=== PATIENT | male | born 1960 | race Caucasian/White ===

== ENCOUNTER 2017-07-04 18:49 | Inpatient (IN) | payer OTHER ==
[~2017-07-04] VITALS: Ht 188 cm; Wt 81.1 kg
[2017-07-04] VITALS (7 sets, daily range): BP systolic 182–229; BP diastolic 87–111; PULSE 56–62; RESP 18–22; TEMP 96.7; O2SAT 95–100
[~2017-07-04 18:49] MED LIST: GLUC500C3 PO; HYDR-3129 PO; MILK140C PO; NORV10TA PO
[2017-07-04] MEDS ORDERED: AMLO10 PO (19:04)
[2017-07-04] MEDS ORDERED: OXYC-395 PO (19:06)
[2017-07-04] MEDS ORDERED: SODIUM CHLOR 0.9% 1000 ML INJ 1,000 ML IV SCH (19:15)
[2017-07-04] MEDS ORDERED: DIPHTH/TETANUS/ACEL PERTUSSIS (BOOSTER) 0.5 ML VIAL/PFS IM ONE (19:15)
[2017-07-04] MEDS ORDERED: ceFAZolin 2 GM PREMIX 50 ML IV ONE (19:15)
[2017-07-04] MEDS ORDERED: SODIUM CHLORIDE 0.9% FLUSH 10 ML FLUSH IVF PRN (19:15)
[2017-07-04] MEDS ORDERED: ONDANSETRON HCL 4 MG/2 ML VIAL IV PUSH ONE (19:15)
[2017-07-04] MEDS ORDERED: MORPHINE SULFATE 4 MG/ML INJ IV PUSH ONE ×2 (19:15→19:45)
[2017-07-04] MEDS ORDERED: MORPHINE SULFATE 8 MG/ML INJ IV PUSH ONE (19:30)
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
[2017-07-04 19:41] LABS: BASOPHIL % 0.7 % (0.0-2.0); EOSINOPHIL % 0.8 % (0.0-4.0); HEMATOCRIT 36.6 % (39.0-51.0); LYMPH % 17.5 % (9.0-44.0); LYMPHOCYTE # 0.7 TH/MM3 (1.0-4.8); MEAN CELL VOLUME 73.3 FL (80.0-100.0); MEAN CORPUSCULAR HEMOGLOBIN 24.2 PG (27.0-34.0); MONO % 8.5 % (0.0-8.0); NEUT % 72.5 % (16.0-70.0); PLATELET COUNT 52 TH/MM3 (150-450); RED BLOOD COUNT 4.99 MIL/MM3 (4.50-5.90); RED CELL DISTRIBUTION WIDTH 22.6 % (11.6-17.2); WHITE BLOOD COUNT 4.2 TH/MM3 (4.0-11.0)
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
[2017-07-04 19:55] LABS: APTT (PATIENT) 25.9 SEC (24.3-30.1); PROTHROMBIN TIME - PATIENT 11.4 SEC (9.8-11.6)
[2017-07-04] MEDS ORDERED: IOHEXOL 350 MG/ML 10 ML VIAL (for RAD DIAG) IVCONTRAST ONE (19:56)
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
[2017-07-04 20:07] LABS: ALCOHOL LESS THAN 3 MG/DL (0-5)
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
[2017-07-04 20:18] LABS: HEMO FLAGS AUTO DIFF
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
[2017-07-04 20:22] LABS: PLATELET ESTIMATE SMEAR LOW (NORMAL); PLATELET MORPHOLOGY ENLARGED (NORMAL); SCAN/DIFF AUTO DIFF CONFIRMED
[2017-07-04 20:48] LABS: I-STAT POTASSIUM 3.5 MMOL/L (3.5-4.9); I-STAT SODIUM 143 MMOL/L (138-146)
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
[2017-07-04] MEDS ORDERED: FENT12DI T-DERMAL (21:12)
[2017-07-04] MEDS ORDERED: CHLORHEXIDINE GLUCONATE 2 % 1 PACK (2 CLOTHS) TOP PRN (21:30)
[2017-07-04] MEDS ORDERED: MISCELLANEOUS NURSING INFORMATION XX SCH (21:30)
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
[2017-07-04] MEDS ORDERED: FENT25DI T-DERMAL (21:48)
[2017-07-04] MEDS ORDERED: fentaNYL 25 MCG/HR PATCH T-DERMAL SCH (22:00)
[2017-07-04 22:30] LABS: ANION GAP 9 MEQ/L (5-15); BLOOD UREA NITROGEN 13 MG/DL (7-18); CHLORIDE 108 MEQ/L (98-107); GLOMERULAR FILTRATION RATE 78 ML/MIN (>89); POTASSIUM 4.5 MEQ/L (3.5-5.1); SODIUM (NA) 140 MEQ/L (136-145)
[2017-07-04] MEDS: HYDROmorphone HCL PF 1 MG/ML VIAL IVP PRN (22:33)
[2017-07-04] MEDS: ACETAMINOPHEN 1000 MG/100 ML 100 ML IV SCH (22:34)
[2017-07-04] MEDS: ONDANSETRON HCL 4 MG/2 ML VIAL IV PUSH PRN (22:39)
[2017-07-04] MEDS: LACTATED RINGER'S 1000 ML INJ 1,000 ML IV SCH (22:45)
[2017-07-05] MEDS: HYDROmorphone HCL PF 1 MG/ML VIAL IVP PRN (02:13)
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
[2017-07-05 03:23] VITALS: BP 165/80; PULSE 64; RESP 18; TEMP 97.2; O2SAT 96
[2017-07-05] MEDS ORDERED: CHLORHEXIDINE GLUCONATE 2 % 1 PACK (2 CLOTHS) TOP SCH (04:00)
[2017-07-05] MEDS: ACETAMINOPHEN 1000 MG/100 ML 100 ML IV SCH ×2 (04:20→09:45)
[2017-07-05] MEDS: ONDANSETRON HCL 4 MG/2 ML VIAL IV PUSH PRN (04:23)
[2017-07-05 06:14] LABS: AUTOMATED NEUTROPHIL # 2.7 TH/MM3 (1.8-7.7); BASOPHIL % 0.4 % (0.0-2.0); EOSINOPHIL # 0.1 TH/MM3 (0-0.4); EOSINOPHIL % 1.5 % (0.0-4.0); HEMATOCRIT 33.1 % (39.0-51.0); LYMPH % 18.2 % (9.0-44.0); LYMPHOCYTE # 0.7 TH/MM3 (1.0-4.8); MEAN CELL VOLUME 72.7 FL (80.0-100.0); MEAN CORPUSCULAR HEMOGLOBIN 23.7 PG (27.0-34.0); MEAN CORPUSCULAR HGB CONC 32.6 % (32.0-36.0); MONO % 10.8 % (0.0-8.0); NEUT % 69.1 % (16.0-70.0); PLATELET COUNT 42 TH/MM3 (150-450); RED BLOOD COUNT 4.55 MIL/MM3 (4.50-5.90); RED CELL DISTRIBUTION WIDTH 21.6 % (11.6-17.2); WHITE BLOOD COUNT 3.9 TH/MM3 (4.0-11.0)
[2017-07-05 06:22] LABS: INTERNATIONAL NORMALIZED RATIO 1.1 RATIO; PROTHROMBIN TIME - PATIENT 11.7 SEC (9.8-11.6)
[2017-07-05 06:24] LABS: HEMO FLAGS AUTO DIFF
[2017-07-05 06:45] LABS: BICARBONATE 24.6 MEQ/L (21.0-32.0); POTASSIUM 3.6 MEQ/L (3.5-5.1)
[2017-07-05] MEDS: LACTATED RINGER'S 1000 ML INJ 1,000 ML IV SCH (07:25)
[2017-07-05] MEDS ORDERED: LACTULOSE SYRUP 20 GM/30 ML CUP PO PRN (07:30)
[2017-07-05] MEDS ORDERED: hydrALAZINE HCL 20 MG/ML VIAL IV PUSH PRN (07:30)
[2017-07-05 08:00] VITALS: BP 179/90; PULSE 45; RESP 16; TEMP 97.1; O2SAT 95
[2017-07-05 08:16] VITALS: PULSE 58
[2017-07-05 08:38] LABS: OVALOCYTES 1+ (NORMAL); PLATELET ESTIMATE SMEAR LOW (NORMAL); PLATELET MORPHOLOGY NORMAL (NORMAL); SCAN/DIFF AUTO DIFF CONFIRMED
[2017-07-05] MEDS ORDERED: FOLIC ACID 1 MG TAB PO SCH (09:00)
[2017-07-05] MEDS ORDERED: POLYETHYLENE GLYCOL 17 GM PKG PO SCH (09:00)
[2017-07-05] MEDS ORDERED: MULTIVITAMINS/MINERALS THERAPEUTIC TAB PO SCH (09:00)
[2017-07-05] MEDS ORDERED: DOCUSATE SODIUM 100 MG CAP PO SCH (09:00)
[2017-07-05] MEDS ORDERED: LISINOPRIL 20 MG TAB PO SCH (09:00)
[2017-07-05] MEDS ORDERED: DOCUSATE SODIUM 50 MG/SENNA 8.6 MG TAB PO SCH (09:00)
[2017-07-05] MEDS ORDERED: THIAMINE HCL 100 MG TAB PO SCH (09:00)
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
--- NOTE | 2017-07-05 10:32 | EKG ---
Date Performed: 07/04/2017 Time Performed: 20:37:39 PTAGE: 56 years EKG: SINUS BRADYCARDIA POSSIBLE RIGHT VENTRICULAR CONDUCTION DELAY MODERATE ST DEPRESSION ABNORM AL ECG PREVIOUS TRACING : 06/01/2015 15.25 DOCTOR: Tanner Rich Interpretating Date/Time 07/05/2017 10:30:46
[2017-07-05] MEDS ORDERED: ROBA500T PO (10:33)
[2017-07-05] MEDS ORDERED: OXYC-395 PO (10:33)
[2017-07-05] MEDS ORDERED: WALKER WHEELS/F1 MIS (10:34)
[2017-07-05 12:00] VITALS: BP 122/58; PULSE 56; RESP 16; TEMP 97.9; O2SAT 97
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
[2017-07-05] MEDS ORDERED: METHOCARBAMOL 500 MG TAB PO SCH (14:00)
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
[2017-07-05 16:00] VITALS: BP 162/84; PULSE 47; RESP 18; TEMP 97.3; O2SAT 99
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
[2017-07-07] MEDS ORDERED: REMOVE OLD DURAGESIC (FENTANYL) PATCH T-DERMAL SCH (22:00)
== END 2017-07-05 17:23 | disposition home or self-care (01) | DRG 552 ==
LOC: NEPC 18:49 → NEDA 21:16 → N06A 22:07
PROVIDERS: ADMIT Surgery Trauma Surgery; ATTEND Surgery Trauma Surgery
DX: S13.4XXA Sprain of ligaments of cervical spine, initial encounter (principal); K76.6 Portal hypertension; I95.9 Hypotension, unspecified; K72.90 Hepatic failure, unspecified without coma; D69.59 Other secondary thrombocytopenia; S80.01XA Contusion of right knee, initial encounter; I10 Essential (primary) hypertension; G89.4 Chronic pain syndrome; M17.11 Unilateral primary osteoarthritis, right knee; M50.30 Other cervical disc degeneration, unspecified cervical region; M51.37 Other intervertebral disc degeneration, lumbosacral region; F12.90 Cannabis use, unspecified, uncomplicated; V43.52XA Car driver injured in collision with other type car in traffic accident, initial encounter; Y92.413 State road as the place of occurrence of the external cause; Z88.5 Allergy status to narcotic agent; Z88.6 Allergy status to analgesic agent
CPT/HCPCS: 70450; 71010; 71260; 72040; 72125; 72128; 72131; 72170; 73552; 73590; 73700; 74177; 80048; 80307; 82435; 82565; 82947; 84132; 84295; 84484; 84520; 85025; 85610; 85730; 86850; 86900; 86901; 93005; 94150; 96361; 96374; 96375; 96376; 99291; G0390; J0131; J1170; J2405; J7120; L0150; L0172; Q9967

== ENCOUNTER 2017-07-27 10:27 | Emergency (ER) | payer OTHER ==
[~2017-07-27] VITALS: Ht 188 cm; Wt 82.0 kg
[~2017-07-27 10:27] MED LIST changes: +AMLO10 PO; +FENT25DI T-DERMAL; -GLUC500C3 PO; -HYDR-3129 PO; -MILK140C PO; -NORV10TA PO; +OXYC-395 PO; +ROBA500T PO; +WALKER WHEELS/F1 MIS
[2017-07-27 10:28] VITALS: BP 154/62; PULSE 62; RESP 12; TEMP 98.1; O2SAT 98
[2017-07-27] MEDS ORDERED: PANC3600 PO (10:57)
[2017-07-27] MEDS ORDERED: PANT40TA3 PO (10:57)
[2017-07-27] MEDS ORDERED: GABA300C5 PO (10:57)
[2017-07-27] MEDS ORDERED: LACT10SO PO (10:57)
[2017-07-27] MEDS ORDERED: LISI-515 PO (10:57)
[2017-07-27] MEDS ORDERED: CYPR4TAB PO (10:57)
[2017-07-27] MEDS ORDERED: BACL10TA PO (10:57)
[2017-07-27] MEDS ORDERED: PROC5TAB PO (10:57)
[2017-07-27] MEDS ORDERED: LIDOCAINE HCL 2% 50 ML VIAL INFIL ONE (11:00)
[2017-07-27] MEDS ORDERED: MORPHINE SULFATE 4 MG/ML INJ IV PUSH ONE (11:00)
[2017-07-27 11:18] LABS: AUTOMATED NEUTROPHIL # 2.3 TH/MM3 (1.8-7.7); BASOPHIL % 0.7 % (0.0-2.0); EOSINOPHIL # 0.1 TH/MM3 (0-0.4); EOSINOPHIL % 1.9 % (0.0-4.0); HEMATOCRIT 34.6 % (39.0-51.0); HEMOGLOBIN 11.2 GM/DL (13.0-17.0); LYMPH % 15.5 % (9.0-44.0); LYMPHOCYTE # 0.5 TH/MM3 (1.0-4.8); MEAN CELL VOLUME 74.4 FL (80.0-100.0); MEAN CORPUSCULAR HEMOGLOBIN 24.1 PG (27.0-34.0); MEAN CORPUSCULAR HGB CONC 32.5 % (32.0-36.0); MEAN PLATELET VOLUME 8.3 FL (7.0-11.0); MONO % 10.9 % (0.0-8.0); MONOCYTE # 0.4 TH/MM3 (0-0.9); PLATELET COUNT 45 TH/MM3 (150-450); RED BLOOD COUNT 4.65 MIL/MM3 (4.50-5.90); RED CELL DISTRIBUTION WIDTH 22.5 % (11.6-17.2); WHITE BLOOD COUNT 3.3 TH/MM3 (4.0-11.0)
[2017-07-27 11:32] LABS: ALBUMIN 3.7 GM/DL (3.4-5.0); ALT (GPT) 25 U/L (12-78); AST (GOT) 22 U/L (15-37); BICARBONATE 28.9 MEQ/L (21.0-32.0); BLOOD UREA NITROGEN 12 MG/DL (7-18); CALCIUM 8.7 MG/DL (8.5-10.1); CHLORIDE 107 MEQ/L (98-107); CREATININE 0.81 MG/DL (0.60-1.30); GLOMERULAR FILTRATION RATE 99 ML/MIN (>89); GLUCOSE,RANDOM 99 MG/DL (74-106); SODIUM (NA) 140 MEQ/L (136-145)
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
[2017-07-27 11:35] LABS: ALKALINE PHOSPHATASE 153 U/L (45-117); TOTAL BILIRUBIN ADULT 0.6 MG/DL (0.2-1.0); TOTAL PROTEIN 7.1 GM/DL (6.4-8.2)
[2017-07-27] MEDS ORDERED: MORPHINE SULFATE 8 MG/ML INJ IV PUSH ONE (12:00)
[2017-07-27 14:17] LABS: WBC, SYNOVIAL FLUID 300 /MM3 (0-200)
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
[2017-07-27 15:48] VITALS: BP 142/55; PULSE 70; RESP 16; O2SAT 98
== END 2017-07-27 15:51 | disposition home or self-care (01) ==
LOC: NEPE 10:27
DX: M25.561 Pain in right knee (principal); I10 Essential (primary) hypertension; Z87.442 Personal history of urinary calculi; Z72.0 Tobacco use; Z88.5 Allergy status to narcotic agent; Z88.6 Allergy status to analgesic agent; Z79.899 Other long term (current) drug therapy
CPT/HCPCS: 20610; 73564; 80053; 85025; 85652; 87070; 87205; 89051; 96374; 99285; J2270